=== PATIENT | male | born 1955 | race Caucasian/White ===

== ENCOUNTER → 2022-12-15 | Emergency (ER) | payer OTHER ==
[~2022-12-15] VITALS: Ht 172.7 cm; Wt 111.1 kg
[~2022-12-15] MED LIST: CELLCEPT250 MG PO; CHILDREN'S ASPI81 MG PO; ENVARSUS XR1 MG PO; LEVO-T75 MCG PO; LIPITOR20 MG PO; NOVOLOG100 UNIT/1 SQ; PANTOPRAZOLE SO20 MG PO; RAYOS5 MG PO
== END | disposition home or self-care (01) ==
LOC: ER 13:24
DX: R04.0 Epistaxis (principal); I10 Essential (primary) hypertension; E11.9 Type 2 diabetes mellitus without complications; Z79.4 Long term (current) use of insulin; E03.9 Hypothyroidism, unspecified